=== PATIENT | male | born 1995 | race Caucasian/White ===

== ENCOUNTER 2021-06-29 00:59 | Emergency (ER) | payer BC ==
[2021-06-29 01:10] VITALS: BP 126/72; TEMP 98; BMI 20.3
[2021-06-29] MEDS ORDERED: DIPHTH,PERTUSS(ACELL),TET 0.5 ML DISP.SYRIN IM ONE ×2 (01:46→02:37)
[2021-06-29] MEDS ORDERED: ACETAMINOPHEN 325 MG TABLET (FP) PO ONE (01:50)
[2021-06-29] MEDS ORDERED: ACETAMINOPHEN 325 MG TABLET (FP) ONE (02:37)
[2021-06-29 04:25] VITALS: PULSE 96
== END 2021-06-29 04:26 | disposition home or self-care (01) ==
LOC: JER 00:59
PROC: 3E0234Z Introduction of Serum, Toxoid and Vaccine into Muscle, Percutaneous Approach (ICD-10-PCS; principal; 2021-06-29)
DX: S00.83XA Contusion of other part of head, initial encounter (principal); S20.211A Contusion of right front wall of thorax, initial encounter; S80.212A Abrasion, left knee, initial encounter; S00.502A Unspecified superficial injury of oral cavity, initial encounter; Y04.0XXA Assault by unarmed brawl or fight, initial encounter
CPT/HCPCS: 70450-TC; 70486-TC; 72125-TC; 73560-TC-RT-FY; 82962; 90715; 99285-25